=== PATIENT | female | born 1950 | race Caucasian/White ===

== ENCOUNTER 2019-02-03 13:50 | Emergency (ER) | payer MEDICARE ==
[~2019-02-03] VITALS: Ht 157.5 cm; Wt 83.9 kg
[~2019-02-03 13:50] MED LIST: ANTIDEPRESSANT; ARIP10 PO; CITA20 PO; Crutch1 EACH MISC; HYDCHL25 PO; HYDR-86 PO; NADO20 PO; NAPR220 PO; OMEP40CA12 PO; TOPI25C; ZOCOR PO
[2019-02-03] MEDS ORDERED: SIMV40 PO (14:49)
[2019-02-03] MEDS ORDERED: ARIPIPRAZOLE5 MG PO (14:49)
[2019-02-03] MEDS ORDERED: Citalopram HBr40 MG PO (14:50)
[2019-02-03] MEDS ORDERED: TOPI50 PO (14:50)
[2019-02-03] MEDS ORDERED: BACL10 PO (14:51)
[2019-02-03] MEDS ORDERED: DICL75ER PO (14:51)
[2019-02-03] MEDS ORDERED: OMEPRAZOLE MAGN20 MG PO (14:51)
[2019-02-03] MEDS ORDERED: Percocet 5-3251 EACH PO (17:13)
== END 2019-02-03 18:23 | disposition home or self-care (01) ==
LOC: ER 13:50
DX: S50.01XA Contusion of right elbow, initial encounter (principal); S70.01XA Contusion of right hip, initial encounter; V29.50XA Motorcycle passenger injured in collision with unspecified motor vehicles in traffic accident, initial encounter; Z79.899 Other long term (current) drug therapy; I10 Essential (primary) hypertension; Z87.891 Personal history of nicotine dependence
CPT/HCPCS: 71260; 73080; 73110; 74177; 90471; 90714; 93005; 93010; 96374-59; 96375-59; 96376-59; 99285-25; A9270; J2405; J3010; Q9967

== ENCOUNTER → 2021-07-05 | Outpatient (CLI) | payer OTHER ==
[~2021-07-05] MED LIST changes: +ARIPIPRAZOLE5 MG PO; +BACL10 PO; +Citalopram HBr40 MG PO; +DICL75ER PO; +OMEPRAZOLE MAGN20 MG PO; +Percocet 5-3251 EACH PO; +SIMV40 PO; +TOPI50 PO
[2021-07-05 15:56] LABS: BASOPHILS ABSOLUTE AUTO 0.06 K/mm3 (0.00-0.23); BASOPHILS PERCENT AUTO 1 % (0-2); EOSINOPHILS ABSOLUTE AUTO 0.56 K/mm3 (0.00-0.68); EOSINOPHILS PERCENT AUTO 9 % (0-6); Hematocrit 42.9 % (33.0-51.0); Hemoglobin 14.1 g/dL (11.5-16.0); IMMATURE GRAN ABSOLUTE AUTO 0.02 K/mm3 (0.00-0.10); IMMATURE GRAN PERCENT AUTO 0 % (0-1); LYMPHOCYTES ABSOLUTE AUTO 1.59 K/mm3 (0.84-5.20); LYMPHOCYTES PERCENT AUTO 24 % (21-46); MONOCYTES ABSOLUTE AUTO 0.55 K/mm3 (0.16-1.47); MONOCYTES PERCENT AUTO 8 % (4-13); Mean Corpuscular HGB 29.8 pg (26.0-34.0); Mean Corpuscular HGB Conc 32.9 g/dL (31.5-36.5); Mean Corpuscular Volume 91 fL (80-100); Mean Platelet Volume 9.9 fL (9.1-12.4); NEUTROPHILS PERCENT AUTO 58 % (41-73); Platelet Count 212 K/mm3 (150-400); RDW Coefficient Variation 13.2 % (11.7-14.2); RDW Standard Deviation 43.7 fL (35.1-46.3); Red Blood Cell Count 4.73 M/mm3 (3.80-5.20); White Blood Cell Count 6.58 K/mm3 (4.00-11.30)
[2021-07-05 16:02] LABS: Alanine Aminotransfer (ALT/SGP 23 U/L (12-78); Albumin, Blood 3.8 g/dL (3.4-5.0); Albumin/Globulin Ratio 1.2 (0.8-1.8); Alk Phos 66 U/L (50-136); Anion Gap 6 mmol/L (6-16); Aspartate Aminotrans (AST/SGOT 12 U/L (12-37); Bilirubin, Total 0.5 mg/dL (0.1-1.0); Blood Urea Nitrogen 13 mg/dL (8-24); Bun/Creatinine Ratio 16.3 (12.0-20.0); CO2, Blood 23 mmol/L (21-32); Chloride, Blood 111 mmol/L (98-108); Globulin, Blood 3.3 g/dL (2.2-4.0); Glomerular Filtration Rate >60 (60-); Glucose, Blood 108 mg/dL (70-99); Potassium, Blood 4.2 mmol/L (3.5-5.5); Sodium, Blood 140 mmol/L (136-145); Total Protein, Blood 7.1 g/dL (6.4-8.2); Troponin I <0.015 ng/mL (0.000-0.040)
== END | disposition home or self-care (01) ==
LOC: LAB SHORT 11:45
PROVIDERS: Nurse Practitioner
DX: R07.9 Chest pain, unspecified (principal); R91.8 Other nonspecific abnormal finding of lung field; R53.83 Other fatigue
CPT/HCPCS: 80053; 84443; 84484; 85025

== ENCOUNTER → 2021-11-23 | Outpatient (CLI) | payer OTHER ==
[2021-11-23 19:46] LABS: CHOL/HDL RATIO 2.8; Cholesterol 169 mg/dL (50-200); HDL Cholesterol 61 mg/dL (>39); LDL/HDL RATIO 1.4; Low Density Lipoprotein Chol 86 mg/dL (0-110); Triglycerides 109 mg/dL (30-160); Very Low Density Lipoprot Chol 21 mg/dL (6-32)
== END | disposition home or self-care (01) ==
LOC: LAB SHORT 14:30 → LAB 14:30
PROVIDERS: Nurse Practitioner
DX: E78.5 Hyperlipidemia, unspecified (principal)
CPT/HCPCS: 80061

== ENCOUNTER 2024-02-14 05:45 | Day surgery (SDC) | payer OTHER ==
[2024-02-14] VITALS (19 sets, daily range): BP systolic 129–188; BP diastolic 53–84
[~2024-02-14] VITALS: Ht 154.9 cm; Wt 89.4 kg
[~2024-02-14 05:45] MED LIST changes: +LOSA25 PO
[2024-02-14] MEDS ORDERED: CeFAZolin Sodium 2,000 MG in NS 100 ML IV SCH (06:15)
[2024-02-14] MEDS ORDERED: Acetaminophen 500 MG Tab PO SCH (06:15)
[2024-02-14] MEDS ORDERED: Lactated Ringer's 1,000 ML IV SCH (06:15)
[2024-02-14] MEDS ORDERED: Ropivacaine 0.5% HCl/Pf 123.125 MG,EPINEPHrine HCL 0.25 MG,Ketorolac Tromethamine 15 MG... INFIL SCH (07:10)
[2024-02-14] MEDS ORDERED: Tranexamic Acid 100 ML IV SCH (07:10)
--- NOTE | 2024-02-14 07:26 | NUR ---
Ambulatory in Day SurgeryPre-Op teaching done. Pt verbalizes understanding. History, Chart, Medications and Allergies reviewed before start of procedure.Patient confirms NPO status and agrees with scheduled surgery. Patient States Post-Procedure ride home has been arranged.
[2024-02-14] MEDS ORDERED: Rocuronium Bromide 10 MG/ML 5ML Injection IV ONE (07:31)
[2024-02-14] MEDS ORDERED: Ondansetron HCl 2 MG / ML 2ML Vial ONE (07:31)
[2024-02-14] MEDS ORDERED: propofoL 20 ML IV ONE (07:31)
[2024-02-14] MEDS ORDERED: HYDROmorphone HCl/Pf 1MG SYR ONE (07:31)
[2024-02-14] MEDS ORDERED: Dexamethasone Sod Phos 10 MG/ML 1ML VIAL ONE (07:31)
[2024-02-14] MEDS ORDERED: Sugammadex Sodium 200 MG/2ML SDV (100 MG/ML) ONE (07:31)
[2024-02-14] MEDS ORDERED: Metoclopramide HCl 5MG / ML 2ML Vial ONE (07:31)
[2024-02-14] MEDS ORDERED: ePHEDrine Sulfate 50 MG/ML 1ML Injection ONE (07:53)
[2024-02-14] MEDS ORDERED: OxyCODONE HCL 5 MG TAB PO PRN (09:55)
[2024-02-14] MEDS ORDERED: FentaNYL Citrate 50 MCG/ML 2 ML Injection ONE (10:18)
--- NOTE | 2024-02-14 13:19 | NUR ---
Discharge instructions reviewed with patient. Patient verbalizes understanding. Copy given to patient to take home. Prescriptions already picked up by pt's family. Provided I.S. with teaching, encouraged use every 15min at home. Sats >92 on RA before discharge. Polar pack instructions placed in discharge folder. Demonstrated sling/adjusment placement. Patient States Post-Procedure ride home has been arranged. Discharged via wheelchair to private car for ride home.
== END 2024-02-14 13:15 | disposition home or self-care (01) ==
LOC: ORSCMMR 05:45 → ORSCSDS 07:30 → ORSCMMR 07:30 → ORD 07:30 → ORSCMMR 13:15
PROVIDERS: Orthopaedic Surgery
PROC: 0RRK00Z Replacement of Left Shoulder Joint with Reverse Ball and Socket Synthetic Substitute, Open Approach (ICD-10-PCS; principal; 2024-02-14 07:30)
DX: M19.012 Primary osteoarthritis, left shoulder (principal); E78.5 Hyperlipidemia, unspecified; I10 Essential (primary) hypertension; F32.A Depression, unspecified; Z87.891 Personal history of nicotine dependence; Z79.899 Other long term (current) drug therapy; K21.9 Gastro-esophageal reflux disease without esophagitis; E66.9 Obesity, unspecified; Z68.37 Body mass index [BMI] 37.0-37.9, adult
CPT/HCPCS: 73030; A9270; C1713; C1776; J0171; J0690; J0735; J1100; J1170; J1885; J2405; J2704; J2765; J2795; J3010; J7120

== ENCOUNTER → 2024-12-24 | Outpatient (CLI) | payer OTHER ==
[2024-12-24 14:45] LABS: BASOPHILS ABSOLUTE AUTO 0.03 K/mm3 (0.00-0.23); BASOPHILS PERCENT AUTO 0 % (0-2); EOSINOPHILS ABSOLUTE AUTO 0.55 K/mm3 (0.00-0.68); EOSINOPHILS PERCENT AUTO 7 % (0-6); Hemoglobin 13.4 g/dL (11.5-16.0); IMMATURE GRAN ABSOLUTE AUTO 0.05 K/mm3 (0.00-0.10); IMMATURE GRAN PERCENT AUTO 1 % (0-1); LYMPHOCYTES ABSOLUTE AUTO 1.92 K/mm3 (0.84-5.20); LYMPHOCYTES PERCENT AUTO 25 % (21-46); MONOCYTES ABSOLUTE AUTO 0.45 K/mm3 (0.16-1.47); MONOCYTES PERCENT AUTO 6 % (4-13); Mean Corpuscular HGB 29.5 pg (26.0-34.0); Mean Corpuscular HGB Conc 32.7 g/dL (31.5-36.5); Mean Corpuscular Volume 90 fL (80-100); Mean Platelet Volume 8.6 fL (9.1-12.4); NEUTROPHILS ABSOLUTE AUTO 4.84 K/mm3 (1.96-9.15); NEUTROPHILS PERCENT AUTO 62 % (41-73); Platelet Count 221 K/mm3 (150-400); RDW Coefficient Variation 13.5 % (11.7-14.2); RDW Standard Deviation 43.8 fL (35.1-46.3); Red Blood Cell Count 4.55 M/mm3 (3.80-5.20); White Blood Cell Count 7.84 K/mm3 (4.00-11.30)
[2024-12-24 14:55] LABS: Albumin/Globulin Ratio 1.2 (0.8-1.8); Bilirubin, Total 0.6 mg/dL (0.1-1.0); Bun/Creatinine Ratio 18.6 (12.0-20.0); Calcium, Blood 10.6 mg/dL (8.5-10.1); Creatinine, Blood 0.97 mg/dL (0.40-1.00); Globulin, Blood 3.4 g/dL (2.2-4.0); Potassium, Blood 3.6 mmol/L (3.5-5.5); Total Protein, Blood 7.4 g/dL (6.4-8.2)
== END ==
LOC: LAB SHORT 14:39 → LAB 14:39
PROVIDERS: Chiropractor
DX: R07.89 Other chest pain (principal); E83.52 Hypercalcemia; R73.9 Hyperglycemia, unspecified
CPT/HCPCS: 80053; 82330; 83036; 83880; 84484; 85025; 85379